=== PATIENT | female | born 1985 | race Caucasian/White ===

== ENCOUNTER 2016-08-03 01:59 | Inpatient (IN) | payer BC ==
[2016-08-03 02:49] VITALS: BMI 30.8
[2016-08-03] MEDS ORDERED: PENICILLIN G POTASSIUM 5 MMU in NS 0.9% (MINI-BAG PLUS) 100 ML IV ONE (02:54)
[2016-08-03] MEDS ORDERED: OXYTOCIN IN LR 500 ML IV ONE (02:54)
[2016-08-03] MEDS ORDERED: OXYTOCIN 10 UNITS/ML VIAL ONE (03:00)
[2016-08-03] MEDS ORDERED: IV START KIT ONE ×2 (03:00→11:13)
[2016-08-03] MEDS ORDERED: LIDOCAINE 1% (PRES FREE) 30 ML VIAL ONE (03:01)
[2016-08-03] MEDS ORDERED: LIDOCAINE Viscous 2% 15 ML UDCUP ONE (03:01)
[2016-08-03] MEDS ORDERED: PUMP TUBING ONE (03:01)
[2016-08-03] MEDS ORDERED: MINERAL OIL 25 ML BOT ONE (03:01)
[2016-08-03] MEDS ORDERED: PENICILLIN G POTASSIUM 5 MMU VIAL ONE (03:03)
[2016-08-03] MEDS ORDERED: NS 0.9% (MINI-BAG PLUS) 100 ML IV ONE (03:05)
[2016-08-03] MEDS: LACTATED RINGERS 1,000 ML IV SCH ×2 (03:25→09:46)
[2016-08-03 03:39] LABS: HEMATOCRIT 38.3 % (37.0-47.0); HEMOGLOBIN 12.7 gm/l (12.0-16.0); MEAN CELL VOLUME 85.9 fl (81.0-99.0); MEAN CORPUSCULAR HEMOGLOBIN 28.5 pg (27.0-31.0); MEAN CORPUSCULAR HGB CONC 33.2 g/dl (33.0-37.0); RED CELL DISTRIBUTION WIDTH 13.9 % (11.5-14.5)
[2016-08-03] MEDS ORDERED: EPIDURAL PUMP SET ONE (03:57)
[2016-08-03] MEDS ORDERED: FENTANYL/ROPIVACAINE EPIDURAL 250 ML EP ONE (03:58)
[2016-08-03] MEDS: LACTATED RINGERS 1,000 ML IV PRN ×2 (04:23→07:05)
[2016-08-03] MEDS ORDERED: SODIUM CHLORIDE 0.9% 500 ML IV PRN (05:14)
[2016-08-03] MEDS ORDERED: DIPHENHYDRAMINE HCL 50 MG/1 ML VIAL IV PRN (05:14)
[2016-08-03] MEDS ORDERED: ONDANSETRON 4 MG/2ML 2 ML VIAL IV PRN (05:14)
[2016-08-03] MEDS ORDERED: LACTATED RINGERS 500 ML IV PRN (05:14)
[2016-08-03] MEDS ORDERED: METOCLOPRAMIDE HCL 5 MG/ML 2ML VIAL IV PRN (05:14)
[2016-08-03] MEDS ORDERED: EPHEDRINE SULFATE 50 MG/ML 1ML VIAL IV PRN (05:14)
[2016-08-03] MEDS ORDERED: NALBUPHINE HCL 20 MG/ML AMP IV PRN (05:14)
[2016-08-03] MEDS ORDERED: NALOXONE HCL 0.4 MG/ML VIAL IV PRN (05:14)
[2016-08-03] MEDS ORDERED: FENTANYL/ROPIVACAINE EPIDURAL 250 ML EP SCH (06:00)
[2016-08-03] MEDS ORDERED: PENICILLIN G 3 MIL UNIT PREMIX 50 ML IV ONE ×2 (07:03→11:12)
[2016-08-03] MEDS: PENICILLIN G 3 MIL UNIT PREMIX 3 MMU in Premix (D5W) 50 ml 1 EACH IV SCH ×2 (07:15→11:18)
--- NOTE | 2016-08-03 10:03 | PCMAN ---
OB Admission Note - History : 5 Term: 3 : 0 Abortions (S&E): 1 Livin Gestational Age (weeks): 39 Days (#/7): 0 Admit Cervical Dilation:: 4.5 Admit Cervical Effacement (%):: 50 Admit Station:: 0 Membrane Status: Intact Labor Onset (Date): 08/02/16 Labor Onset (Time): 22:00 Contractions: Yes Contraction Frequency:: 3-4 Heart Rate:: 150 Status:: category 1 EFW:: 8 Summary of Course:: Dates calculated by 20 week confirmation of LMP. She had a low lying placenta on early ultrasound but it resolved by the 32 week check. She also likely passed a kidney stone a few weeks ago and has a history of that and right pelviectasis. Otherwise her care was normal. - Labs Blood Type: A (+) positive Hct/Hgb:: 38.3/12.7 Rubella Status: Immune GBS Status: Positive Abnormal Labs: None - Review of Systems Sciatic pain worsened in the last week. - Physical Exam General: Afebrile, No Acute Distress Psych/Mental Status: Mood/Affect Appropriate, Judgment/Insight Intact Neurological: Grossly Intact, Alert, Oriented x 4, Normal Speech, Normal Reflexes, Cranial Nerves 3-12 Intact HEENT: Atraumatic, PERRLA, EOMI, Mucous membr. moist/pink Lungs: Clear to Auscultation Bilaterally Cardiovascular: Regular Rate and Rhythm, No Murmur Abdomen: Normal Bowel Sounds Genitourinary: Normal Female Genitalia Rectal Exam: Deferred Extremities: Edema (trace) Skin: Normal Color, No Rash - Problems (1) with 39 completed weeks gestation Status: Acute Code: Z3A.39 Assessment/Plan: stable in active labor now at 8 cm/80%/-2 with SROM done-clear AF, expect (2) Pelviectasis of kidney Status: Acute Code: N28.89 Assessment/Plan: stable, followed by Urologist.
[2016-08-03] MEDS ORDERED: OXYTOCIN IN LR 500 ML IV PRN (11:34)
[2016-08-03] MEDS ORDERED: LIDOCAINE 1% (PRES FREE) 30 ML VIAL SUB-Q ONE (13:45)
--- NOTE | 2016-08-03 14:14 | PCMDEL ---
Delivery Note - Labor 1st stage (hr/min):: 15 hr/31 min 2nd stage (hr/min):: 22 min 3rd stage (hr/min):: 12 min Total (hr/min):: 16 hr/ 5 min Pushed (hr/min):: 10 min - Delivery Delivery (Date): 08/03/16 Delivery (Time): 13:31 Infant Gender: Male Presentation: Cephalic Position: OA Umbilical Cord: 3 Vessel Delayed Cord Clamping:: > 3 min 1 Minute Total: 9 5 Minute Total: 9 Placenta:: intact EBL:: 350 ml Perineum:: minor 2nd degree perineal laceration Suture:: 3-0 Chromic Anesthesia/Meds:: Epidural + local for repair Length ROM:: 4 hours Comments:: Beautiful, uncomplicated vaginal delivery. Cord blood collected for family.
[2016-08-03] MEDS ORDERED: ACETAMINOPHEN 325 MG TABLET PO PRN (14:27)
[2016-08-03] MEDS ORDERED: BENZOCAINE/MENTHOL 60 APPLIC/BOT TP PRN (14:27)
[2016-08-03] MEDS ORDERED: OXYCODONE HCL 5 MG TABLET PO PRN (14:27)
[2016-08-03] MEDS: IBUPROFEN 800 MG TABLET PO PRN ×2 (16:06→22:03)
[2016-08-03] MEDS: DOCUSATE SODIUM 100 MG CAPSULE PO PRN (17:54)
[2016-08-04] MEDS: OXYCODONE/ACETAMINOPHEN 5/325 MG TABLET PO PRN ×6 (01:28→22:04)
[2016-08-04] MEDS: IBUPROFEN 800 MG TABLET PO PRN ×4 (03:54→22:04)
[2016-08-04] MEDS: LANOLIN 50 APPLIC/7G TUBE TP PRN (04:18)
[2016-08-04 06:50] LABS: HEMATOCRIT 31.8 % (37.0-47.0); HEMOGLOBIN 10.2 gm/l (12.0-16.0)
[2016-08-04] MEDS: DOCUSATE SODIUM 100 MG CAPSULE PO PRN (09:43)
[2016-08-04] MEDS: PRENATAL VIT/FE FUMARATE/FA 1 TABLET PO SCH (09:43)
--- NOTE | 2016-08-04 12:10 | PDOC44 ---
- Subjective Day: 1 Reports Pain Tolerable, Reports , Reports Lochia Light, Reports Tolerating Regular Diet - Objective Temp Pulse Resp BP Pulse Ox 97.9 F 85 18 137/58 08/04/16 09:55 08/04/16 09:55 08/04/16 09:55 08/04/16 09:55 Lab Results 08/04/16 06:30 Hgb 10.2 L D Hct 31.8 L Current Medications Generic Name Dose Route Start Last Admin Trade Name Freq PRN Reason Stop Dose Admin Acetaminophen 325 - 650 mg 08/03/16 14:27 Tylenol PO Q4H PRN Pain (Mild) Benzocaine/Menthol 1 applic 08/03/16 14:27 08/03/16 22:04 Dermoplast TP 1 bot PRN PRN Administration Patient Comfort Docusate Sodium 100 mg 08/03/16 14:27 08/04/16 09:43 Colace PO 100 mg DAILY PRN Administration Comfort Emollient Ointment 1 applic 08/03/16 14:27 08/04/16 04:18 Pre-B-Wjqyce TP 1 tube PRN PRN Administration sore nipples Ibuprofen 800 mg 08/03/16 14:27 08/04/16 10:23 Motrin PO 800 mg Q6H PRN Administration Pain (Mild) Multivi/Iron Carb/Fe Sulf/FA/Prenat 1 tab 08/04/16 09:00 08/04/16 09:43 Plus PO 1 tab DAILY JESSE Administration Oxycodone HCl 5 - 10 mg 08/03/16 14:27 Roxicodone PO Q3H PRN Pain (Severe) Oxycodone/Acetaminophen 1 - 2 tab 08/03/16 14:27 08/04/16 09:43 Percocet 5/325 PO 1 tab Q4H PRN Administration Pain (Moderate) Sodium Chloride 10 ml 08/03/16 14:27 08/03/16 22:04 Normal Saline 10ml Flush IV 10 ml PRN PRN Administration IV Flush - Physical Exam General: Afebrile, No Acute Distress Psych/Mental Status: Mood/Affect Appropriate, Bonding Well Neurological: Alert, Oriented x 4, Normal Speech, Cranial Nerves 3-12 Intact HEENT: Atraumatic, PERRLA, EOMI, Mucous membr. moist/pink Lungs: Clear to Auscultation Bilaterally Cardiovascular: Regular Rate and Rhythm, No Murmur Breast: Soft, Skin intact, Nipples Intact, No Nipples Cracked Fundus: Firm, Midline, At Umbilicus Abdomen: Normal Bowel Sounds Genitourinary: Normal Female Genitalia, Other (sutures intact), No Edema Lochia: Light Extremities: Full ROM, No Edema, No Tenderness Deep Tendon Reflexes: Patellar (L): 2+ (Brisk, Normal), Patellar (R): 2+ (Brisk , Normal) Skin: Normal Color, Warm, Dry, Intact, No Rash Wound STYLIST APPRENTICE: Dressing Clean/Dry/Intact, Well Approximated - Problems:Assessment/Plan (1) Pelviectasis of kidney Status: Acute Assessment/Plan: stable, followed by Urologist. (2) Spontaneous vaginal delivery Status: Acute Assessment/Plan: stable, continue routine PP care. (3) Perineal laceration during delivery, delivered Status: Acute Assessment/Plan: healing well. Disposition: Stable, Anticipate DC Home Tomorrow
[2016-08-05] MEDS: OXYCODONE/ACETAMINOPHEN 5/325 MG TABLET PO PRN ×3 (06:02→14:04)
[2016-08-05] MEDS: IBUPROFEN 800 MG TABLET PO PRN ×2 (06:03→12:11)
[2016-08-05 09:01] VITALS: BP 121/62
[2016-08-05] MEDS: PRENATAL VIT/FE FUMARATE/FA 1 TABLET PO SCH (10:33)
[2016-08-05] MEDS: DOCUSATE SODIUM 100 MG CAPSULE PO PRN ×2 (10:34→10:49)
--- NOTE | 2016-08-05 11:45 | PDOC39B ---
Hospital Course: ADMIT DATE: 08/03/16 DISCHARGE DATE: 08/05/16 ADMISSION DIAGNOSES: 39 week , GBS positive, maternal hydronephrosis PROCEDURES: Spontaneous Vaginal Delivery HISTORY OF PRESENT ILLNESS: 31 year old G5 T3 L3 at 39 weeks 0 days presenting with active labor, required epidural for pain management. Also required AROM and Pitocin for augmentation due to slow progress. She eventually reached complete then pushed without difficulty to a beautiful vaginal delivery. HOSPITAL COURSE: The patient had an unremarkable post course. By day of discharge the patient is ambulating, eating, voiding, and passing flatus without difficulty. Pain is controlled and lochia is appropriate. She is [] - Physical Exam Vital Signs: Temp Pulse Resp BP Pulse Ox 98.0 F 80 16 121/62 08/05/16 08:53 08/05/16 08:53 08/05/16 08:53 08/05/16 08:53 General: Afebrile, No Acute Distress Psych/Mental Status: Mood/Affect Appropriate Neurological: Grossly Intact, Alert, Oriented x 4 HEENT: Atraumatic, PERRLA, EOMI, Mucous membr. moist/pink Lungs: Clear to Auscultation Bilaterally Cardiovascular: Regular Rate and Rhythm, No Murmur Breast: Soft, Skin intact, Nipples Intact Fundus: Firm, Midline, Below Umbilicus Abdomen: Normal Bowel Sounds Genitourinary: Normal Female Genitalia, No Edema Lochia: Light Extremities: Full ROM, Edema (mild) Skin: Normal Color, Warm, Dry, Intact, No Rash Wound: Dressing Clean/Dry/Intact, Well Approximated - Discharge Diagnosis (1) Pelviectasis of kidney Status: Acute Assessment/Plan: stable, followed by Urologist. (2) Spontaneous vaginal delivery Status: Acute Assessment/Plan: stable, discharge home, FU 6 weeks. (3) Perineal laceration during delivery, delivered Status: Acute Assessment/Plan: healing well. - Discharge Plan Instruction Forms: Vaginal Discharge Instructions Follow-Up: Anushka Boogie MD [Primary Care Provider] - In 6 weeks
[2016-08-05] MEDS: LANOLIN 50 APPLIC/7G TUBE TP PRN (12:23)
== END 2016-08-05 14:42 | disposition home or self-care (01) | DRG 775 ==
LOC: FBC 01:59 → FBCOUT 01:59 → FBC 03:00
PROVIDERS: ADMIT Family Medicine; ATTEND Family Medicine
PROC: 10E0XZZ Delivery of Products of Conception, External Approach (ICD-10-PCS; principal; 2016-08-03)
PROC: 10907ZC Drainage of Amniotic Fluid, Therapeutic from Products of Conception, Via Natural or Artificial Opening (ICD-10-PCS; 2016-08-03)
DX: O99.824 Streptococcus B carrier state complicating childbirth (principal); O26.833 Pregnancy related renal disease, third trimester; N13.30 Unspecified hydronephrosis; O70.1 Second degree perineal laceration during delivery; N28.9 Disorder of kidney and ureter, unspecified; Z37.0 Single live birth; Z3A.39 39 weeks gestation of pregnancy

== ENCOUNTER 2016-08-09 09:11 | Outpatient (CLI) | payer BC | END 2016-08-09 09:12 | disposition home or self-care (01) | LOC: BABIESSH 09:11 | PROVIDERS: ATTEND Family Medicine | DX: Z39.1 Encounter for care and examination of lactating mother (principal) ==